=== PATIENT | male | born 1975 | race Caucasian/White ===

== ENCOUNTER → 2017-03-18 | Outpatient (CLI) | payer OTHER ==
[~2017-03-18] VITALS: Ht 185.4 cm; Wt 109.5 kg
[~2017-03-18] MED LIST: LEVO500T10 PO
[2017-03-18 14:52] VITALS: BP 132/79; PULSE 82; RESP 18; Ht 185.4 cm; Wt 109.5 kg
--- NOTE | 2017-03-18 15:29 | PN ---
Date/Time of Note Date/Time of Note DATE: 03/18/17 TIME: 15:25 Outpatient Progress Note Chief Complaint Cellulitis HPI Cellulitis/acute onset, right leg, few days duration, moderately severe, associated with redness and pain, slightly relieved with antibiotic, Patient was recently hospitalized for cellulitis, patient was given IV antibiotic, patient on Levaquin now, Review of Systems Const: No Fever, no chills, no Wt. loss, no Fatigue, normal appetite, no diaphoresis. Eyes: No pain, no discharge, no redness, no visual change, no foreign body. ENT: No pain, no bleeding, no congestion, no sore throat, no dysphagia, no discharge or rhinitis. Lymph: No adenopathy, no tender nodes, no lymphedema. Resp: No SOB, no cough, no sputum, no wheezing, no chest pain. CV: No chest pain, no palpitaions, no AREVALO, no PND, no edema. GI: Normal appetite, no pain, no nausea, no vomiting, no diarrhea, no blood, no constipation. : No frequency, no urgency, no dysuria, no hematuria, no flank pain, no discharge, no bleeding. Musc: No back pain, no neck pain, no knee pain, no restricted ROM. Skin: No rash, no skin lesions, right leg erythema slight itching, and painful, , no laceration, no bruising, no pruritus. Neuro: No HERNDON, no dizziness, no syncope, no seizure, no focal-weakness. Endo: No polyuria, no polydypsia, no dry-skin, no temp-intolerance. Psych: No hallucinations, no depression, no anxiety, no suicidal ideation. Ext: No edema, right leg pain, has redness, slight itching, secondary to cellulitis, o ulcer, no weakness. Physical Exam Vital Signs Date Time Temp Pulse Resp B/P Pulse Ox O2 Delivery O2 Flow Rate FiO2 03/18/17 14:52 98.2 82 18 132/79 98 Room Air General Appearance: A year-old 42]-year-old male who appears well-developed, well-nourished, in no acute distress. HEENT: Head normocephalic, atraumatic. Pupils equal, round, reactive to light and accommodate. Sclerae are no jaundice. Nasal turbinates pink without erythema or nasal discharge. Mucous membranes pink and moist without lesions. Oropharynx clear without any exudate or discharge. NECK: Supple. Trachea midline, No thyromegaly, No cervical lymphadenopathy, No mass, No carotid bruits, No JVD, Carotid pulses 2+ bilaterally. PULMONARY: Clear to auscultaion bilaterally, No retractions, Chest expansion symmetric bilaterally, no rales, no ronchi, no dulness on percussion. CARDIAC: Normal SI and S2, Regular rate and rythm, no murmur, gallop, or rub. GASTROINTESTINAL: Abdomen is soft, non-tender, Non Rigid, No distention, Positive bowel sounds x4 quadrants, Liver normal. SKIN: Warm, dry, no rash, no bruise, no echmosis. Patient has redness of right leg, warm to touch, slightly painful, no ulcer, no bleeding, EXTREMITIES: Bilateral lower extremities right leg redness, painful, no edema, no phlabitus, pulse palpable, no contracture tenderness, warm to touch,. MUSCULOSKELETAL: Spine Normal, Non-tender, Normal range of motion, No swelling, no deformity, no clubbing, or cyanosis, the patient has no edema to bilateral lower extremities, dorsalis pedis pulses palpable bilaterally. NEUROLOGIC: The patient is awake, alert, oriented, responding to yes/no questions appropriately, moving all extremities, cranial nerve intact, normal strenght, normal power, normal coordination, normal gait. Allergies Coded Allergies: No Known Drug Allergies (Verified Allergy, Unknown, 03/18/17) PMH Smokes marijuana occasionally, and when he drinks he drinks 6 cans of beer, after the hospitalization he is not drinking, or smoking marijuana, Social Hx None Family Hx Noncontributory Assessment/Plan Impression Cellulitis right leg Plan Patient has Levaquin, patient continued to take, patient slowly improving, no fever chill, less pain, Patient encouraged to follow with the primary care physician, Patient encouraged to keep the legs elevated, and avoid the swelling, If any fever or any complication go to the ER or come to the office, or primary care physician, Medications Home Meds Reported Medications Levofloxacin* (Levofloxacin*) 500 Mg Tablet, 500 MG PO DAILY, TAB 03/18/17 SUDHA PAYAN MD Mar 18, 2017 15:29
== END | disposition home or self-care (01) ==
LOC: DCC 14:48
PROVIDERS: ATTEND Internal Medicine
DX: L03.115 Cellulitis of right lower limb (principal)

== ENCOUNTER 2017-03-29 11:55 | Outpatient (CLI) | payer OTHER ==
[~2017-03-29] VITALS: Ht 185.4 cm; Wt 110.5 kg
[2017-03-29 11:56] VITALS: BP 132/85; PULSE 70; RESP 18; Ht 185.4 cm; Wt 110.5 kg
--- NOTE | 2017-03-29 12:13 | PN ---
Date/Time of Note Date/Time of Note DATE: 03/29/17 TIME: 12:09 Outpatient Progress Note Chief Complaint Cellulitis HPI Cellulitis/acute on chronic, left lower leg, associated redness, some pain and discomfort, no fever chill, associated with slight edema, Review of Systems Const: No Fever, no chills, no Wt. loss, no Fatigue, normal appetite, no diaphoresis. Eyes: No pain, no discharge, no redness, no visual change, no foreign body. ENT: No pain, no bleeding, no congestion, no sore throat, no dysphagia, no discharge or rhinitis. Lymph: No adenopathy, no tender nodes, no lymphedema. Resp: No SOB, no cough, no sputum, no wheezing, no chest pain. CV: No chest pain, no palpitaions, no AREVALO, no PND, no edema. GI: Normal appetite, no pain, no nausea, no vomiting, no diarrhea, no blood, no constipation. : No frequency, no urgency, no dysuria, no hematuria, no flank pain, no discharge, no bleeding. Musc: No bone/joint pain, no back pain, no neck pain, no knee pain, no restricted ROM. Skin: No rash, no skin lesions, right lower leg erythema, patient has slight swelling, tenderness, no laceration, no bruising, no pruritus. Neuro: No HERNDON, no dizziness, no syncope, no seizure, no focal-weakness. Endo: No polyuria, no polydypsia, no dry-skin, no temp-intolerance. Psych: No hallucinations, no depression, no anxiety, no suicidal ideation. Ext: Mild edema, right lower leg and pain slight redness, painful, and associated with slight edema,, no ulcer, no weakness. Physical Exam General Appearance: A 42 year-old male who appears well-developed, well- nourished, in no acute distress. HEENT: Head normocephalic, atraumatic. Pupils equal, round, reactive to light and accommodate. Sclerae are no jaundice. Nasal turbinates pink without erythema or nasal discharge. Mucous membranes pink and moist without lesions. Oropharynx clear without any exudate or discharge. NECK: Supple. Trachea midline, No thyromegaly, No cervical lymphadenopathy, No mass, No carotid bruits, No JVD, Carotid pulses 2+ bilaterally. PULMONARY: Clear to auscultaion bilaterally, No retractions, Chest expansion symmetric bilaterally, no rales, no ronchi, no dulness on percussion. CARDIAC: Normal SI and S2, Regular rate and rythm, no murmur, gallop, or rub. GASTROINTESTINAL: Abdomen is soft, non-tender, Non Rigid, No distention, Positive bowel sounds x4 quadrants, Liver normal. SKIN: Warm, dry, no rash, no bruise, no echmosis. Patient has right lower leg redness, painful, slight edema, EXTREMITIES: Bilateral lower extremities mild edema, painful, redness, no phlabitus, pulse palpable, no contracture. MUSCULOSKELETAL: Spine Normal, Non-tender, Normal range of motion, No swelling, no deformity, no clubbing, or cyanosis, the patient has no edema to bilateral lower extremities, dorsalis pedis pulses palpable bilaterally. NEUROLOGIC: The patient is awake, alert, oriented, responding to yes/no questions appropriately, moving all extremities, cranial nerve intact, normal strenght, normal power, normal coordination, normal gait. Allergies Coded Allergies: No Known Drug Allergies (Verified Allergy, Unknown, 03/18/17) PMH No change Social Hx No change Family Hx No change Assessment/Plan Impression Cellulitis Plan Patient still has slight redness, painful, edema, especially right lower leg, patient still has slight difficulty in walking and painful on walking, Patient advised to elevate the leg, Will start Bactrim DS 1 twice daily for 1 week, Patient to follow with the primary care physician, Medications Home Meds Reported Medications Levofloxacin* (Levofloxacin*) 500 Mg Tablet, 500 MG PO DAILY, TAB 03/18/17 SUDHA PAYAN MD Mar 29, 2017 12:13
== END 2017-03-29 17:00 | disposition home or self-care (01) ==
LOC: DCC 11:55
PROVIDERS: ATTEND Internal Medicine
DX: L03.116 Cellulitis of left lower limb (principal)
CPT/HCPCS: G0463